=== PATIENT | female | born 1975 | race Caucasian/White ===

== ENCOUNTER 2020-08-30 10:47 | Outpatient (CLI) | payer BC | END 2020-08-30 23:59 | disposition home or self-care (01) | LOC: MRI 10:47 | PROVIDERS: ATTEND Family Medicine | DX: M17.0 Bilateral primary osteoarthritis of knee (principal) | CPT/HCPCS: 73721-TC ==

== ENCOUNTER 2021-08-06 11:06 | Outpatient (CLI) | payer BC | END 2021-08-06 23:59 | disposition home or self-care (01) | LOC: US 11:06 | PROVIDERS: ATTEND Family Medicine | DX: R31.9 Hematuria, unspecified (principal) | CPT/HCPCS: 76770-TC; 87086-TC ==

== ENCOUNTER 2023-07-14 10:24 | Outpatient (CLI) | payer BC ==
[2023-07-14] MEDS ORDERED: IOHEXOL-300 100 ML VIAL IV ONE (10:39)
[2023-07-14] MEDS ORDERED: IV NS 0.9% 250 ML IV ONE (10:39)
== END 2023-07-14 23:59 | disposition home or self-care (01) ==
LOC: CT 10:24
PROVIDERS: ATTEND Family Medicine
DX: R16.2 Hepatomegaly with splenomegaly, not elsewhere classified (principal); R31.29 Other microscopic hematuria
CPT/HCPCS: 74177; J7050; Q9967